=== PATIENT | male | born 1950 | race Caucasian/White ===

== ENCOUNTER → 2024-09-26 | Outpatient (CLI) | payer BC, SELFPAY ==
--- NOTE | 2024-09-26 14:30 | XR_ITS ---
Examination: Testicular sonography complete TECHNIQUE: Grayscale sonographic images right and left testes, assessment arterial inflow venous outflow Doppler spectral analysis, flow analysis Exam date and time: September 26, 2024 1423 hours INDICATIONS: Palpable lump left testis note is beginning 2 years ago FINDINGS: Right testis 4.4 x 2.7 x 3.4 cm Epididymis 11 mm Arterial flow to the testicle 2 mm right testicular calcification, no testicular mass Severe right hydrocele Left testis 4.6 x 2.6 x 3.1 cm Epididymis 11 mm Arterial flow testicle Left mid to lateral testicular mass 6 x 5 x 6 mm Left epididymal cyst, multiple largest 7 mm Moderate hydrocele IMPRESSION: No testicular torsion or testicular mass Large right hydrocele Solid mass left testis 6 x 5 x 6 mm, clinical correlation advised
== END | disposition home or self-care (01) ==
PROVIDERS: PCP Specialist; Referring Provider Family Medicine; Visit Provider Family Medicine
DX: N43.3 Hydrocele, unspecified (principal); N50.89 Other specified disorders of the male genital organs
CPT/HCPCS: 76870

== ENCOUNTER 2024-12-07 15:23 | Emergency (ER) | payer BC, SELFPAY ==
[2024-12-07 15:25] VITALS: BMI 32.8
[2024-12-07 15:56] VITALS: BP 134/78; PULSE 99; RESP 22; TEMP 39; O2SAT 94
--- NOTE | 2024-12-07 16:15 | EKG_ITS ---
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
--- NOTE | 2024-12-07 16:15 | XR_ITS ---
Examination: PA chest single view TECHNIQUE: Upright PA chest single view Exam date and time: December 07, 2024 1628 hours INDICATIONS: Coughing and fever beginning 3 days ago. FINDINGS: Significant left base pneumonia Right lung clear Normal heart size IMPRESSION: Significant left base pneumonia
--- NOTE | 2024-12-07 16:16 | PD.EDRME ---
Rapid Medical Screening Exam E Arrival date/time: 12/07/24 15:23 74-year-old male presents to the emergency department with complaints of fever, shortness of breath reports he was instructed by his PCP to come to the ED due to low pulse oximetry. I have greeted and performed a focused initial assessment of this patient. Initial appropriate labs ordered at this time. A comprehensive ED assessment and evaluation of the patient and analysis of all test and completion of medical decision making process will be conducted by additional ED provider. Chief Complaint: Shortness of Breath/Dyspnea Time Seen by Provider: 12/07/24 15:59 Vital signs: Vital Signs Temperature 102.2 F H 12/07/24 15:56 Pulse Rate 99 12/07/24 15:56 Respiratory Rate 22 H 12/07/24 15:56 Blood Pressure 134/78 H 12/07/24 15:56 Pulse Oximetry (%) 94 L 12/07/24 15:56 Oxygen Delivery Method Room Air 12/07/24 15:56
[2024-12-07 16:42] LABS: Basophils % (Auto) 0 % (0-2.5); Eosinophils % (Auto) 0 % (0-10); Hematocrit 43.2 % (41.0-53.0); Hemoglobin 14.7 g/dL (13.5-16.0); Immature Granulocytes % (Auto) 0 % (0-0); Immature Granulocytes Auto 0.03 Thou/mm3 (0.00-0.00); Lymphocytes # (Auto) 1.2 Thou/mm3 (1.0-4.8); Lymphocytes % (Auto) 15 % (10-50); Mean Corpuscular Hemoglobin 30.8 pg (25.0-35.0); Mean Corpuscular Volume 90 fL (80-100); Monocytes # (Auto) 0.7 Thou/mm3 (0.0-0.8); Monocytes % (Auto) 9 % (0-12); Neutrophils # (Auto) 5.8 Thou/mm3 (1.8-7.7); Neutrophils % (Auto) 76 % (37-80); Nucleated Red Blood Cell % 0 /100 WBC (0); Platelet Count 151 Thou/mm3 (140-440); Red Blood Count 4.78 Miln/mm3 (4.50-5.90); White Blood Count 7.6 Thou/mm3 (3.8-10.6)
[2024-12-07 16:55] VITALS: TEMP 39
[2024-12-07] MEDS: ACETAMINOPHEN 500 MG TABLET 1000 MG PO (16:55)
[2024-12-07 16:59] LABS: B-Type Natriuretic Peptide 73 pg/mL (0-100); INR 1.1 (0.9-1.3); Prothrombin Time 11.6 Seconds (9.0-12.2)
[2024-12-07 17:01] LABS: Alanine Aminotransferase 12 U/L (10-49); Albumin, Serum 4.3 gm/dL (3.4-4.8); Albumin/Globulin Ratio 1.5 (1.2-2.2); Alkaline Phosphatase 76 U/L (46-116); Anion Gap 10 (7-16); Aspartate Amino Transferase 18 U/L (0-34); BUN/Creatinine Ratio 15 Ratio (12-20); Bilirubin,Total 0.8 mg/dL (0.3-1.2); Blood Urea Nitrogen 18 mg/dL (9-23); Carbon Dioxide 22.9 mMol/L (20.0-31.0); Chloride 105 mMol/L (98-107); Creatinine (Component) 1.2 mg/dL (0.6-1.3); Estimated Creatinine Clearance 60.3 mL/min (>60); Globulin 2.8 gm/dL (2.3-3.5); Glucose 116 mg/dL (74-106); Lipase 35 U/L (12-53); Osmolality,Calculated 278 (275-295); Potassium 3.8 mMol/L (3.4-5.1); Sodium 138 mMol/L (136-145); Total Protein 7.1 gm/dL (5.7-8.2); Troponin I < 0.020 ng/mL (0.0-0.045); eGFR > 60 See Note
[2024-12-07 17:30] LABS: Respiratory Syncytial Virus Ag Negative (Negative)
--- NOTE | 2024-12-07 20:46 | EDNOTE_ITS ---
ED SOB =RME/HPI General Chief Complaint: Shortness of Breath/Dyspnea Stated Complaint: SOB, sore throat, cough, flu like symptoms Time Seen by Provider: 12/07/24 15:59 Arrival date/time: 12/07/24 15:23 RME / HPI RME / HPI Narrative: 12/07/24 15:23 74-year-old male presents to the emergency department with complaints of fever, shortness of breath reports he was instructed by his PCP to come to the ED due to low pulse oximetry. I have greeted and performed a focused initial assessment of this patient. Initial appropriate labs ordered at this time. A comprehensive ED assessment and evaluation of the patient and analysis of all test and completion of medical decision making process will be conducted by additional ED provider. Dr. Sterling?s Main ED Evaluation: 74yo male with a history of HTN, BPH presents to the ED for complaints of fever, cough, and hypoxia. Patient states he's had a fever, sore throat, and cough for the last 2-3 days, reporting it's been progressively getting worse. Today, he states he felt generally weak and lightheaded, and when he checked his oxygen, it was 88% on room air. He was seen by his PCP, who sent him over for evaluation. Patient denies any N/V/D or any other associated symptoms. No known allergies. Related Data Home Medications ?Medication ?Instructions ?Recorded ?Confirmed aspirin 81 mg tablet,delayed 81 mg PO QDAY 01/04/23 release Held on 01/04/23. Instructions: Resume on 01/05/23. atorvastatin 10 mg tablet 10 mg PO QHSPRN 01/04/23 levetiracetam 1,000 mg tablet 1,000 mg PO QDAY 3 01/04/23 sertraline 100 mg tablet 100 mg PO QDAY 01/04/2312/17 tamsulosin 0.4 mg capsule 0.4 mg PO QDAY 01/04/2312/17 valsartan 160 mg tablet 160 mg PO DAILY 01/04/23 Held on 01/04/23. Instructions: Resume on 01/05/23. Previous Rx's ?Medication ?Instructions ?Recorded acetaminophen 500 mg capsule 1,000 mg (2 x 500 mg) PO Q6H PRN 12/07/24 fever or pain 5 days #40 caps azithromycin 250 mg tablet 250 mg PO QDAY Community ac quired 12/07/24 (Zithromax) pneumonia 4 days #4 tabs ibuprofen 600 mg tablet 600 mg PO Q6H PRN fever or p ain 5 12/07/24 days #20 tabs Allergies Allergy/AdvReac Type Severity Reaction Status Date / Time No Known Allergies Allergy Verified 01/04/23 11:56 Review of Systems Review of Systems Systems Reviewed: All systems reviewed, normal except as documented Past Medical History Past Medical History NEUROLOGIC: Negative Neurological Disorders or Seizures CARDIAC: Positive Hypertension; Negative Congestive Heart Failure RESPIRATORY: Negative Chronic Obstructive Pulmonary Disease (COPD) GENITOURINARY: Positive Benign Prostatic Hyperplasia; Negative Renal Disease MUSCULOSKELETAL: Negative Musculoskeletal Disorders ENDOCRINE: Negative Endocrine Disorders, Diabetes Mellitus Type 1 or Diabetes Mellitus Type 2 HEMATOLOGIC: Negative Blood Disorders OTHER HISTORY: Positive Hospitalization (RIGHT ANKLE TENDEN SX); Negative Autoimmune Disease, Blood Transfusions, Blood Transfusion Reaction, Anesthesia Reactions or Organ Transplant Family History FAMILY HISTORY: Positive Family Cardiac Disorders (FATHER [place]), Family Gastrointestinal Problems (SISTER WITH COLON CA) and Family Cancer (SISTER WITH COLON CA) Surgical History SURGICAL: Negative Joint Replacement or Organ Transplant Social History SMOKING STATUS: Never smoker ED Exam Narrative Physical exam: GENERAL APPEARANCE: alert and oriented x 4, well-developed, well-nourished, no acute distress VITALS: All vitals were reviewed and the pulse ox is 96% on room air, which is normal according to my interpretation. HEENT: Normocephalic, atraumatic; pupils equal, round, reactive to light; EOMI; mucous membranes pink, moist; mild posterior orophayngeal injection; normal voice, normal arch, uvula is midline NECK: Supple LUNGS: CTABL; no wheezes, no rales, no rhonchi HEART: Regular rate, regular rhythm; normal S1, S2; no murmurs ABDOMEN: non distended; normal BS; soft, no tenderness, no guarding, no rebound; no masses, no organomegaly, no hernia BACK: no CVA tenderness EXTREMITIES: atraumatic; no edema NEUROLOGIC: awake; alert and oriented x4; cranial nerves II-XII grossly intact; no focal sensory or motor deficits PSYCHIATRIC: appropriate mood and affect SKIN: warm, dry, normal color; no rashes Course Course Course Narrative: CXR is ordered for determining the etiology of cough. Quality Measures none Orders Category Date Time Status Bedside COVID-19 Antigen Test NOW Care 12/07/24 16:15 Completed Bedside Influenza A&B Antigen Test NOW Care 12/07/24 16:16 Completed EKG (ED ONLY) *Do not use* NOW Care 12/07/24 16:15 Completed EKG (ED Only) Stat Exams 12/07/24 16:15 Draft XR chest 1V portable Stat Exams 12/07/24 16:15 Completed B-Type Natriuretic Peptide Stat Lab 12/07/24 16:24 Completed Blood Culture (Lab) Stat Lab 12/07/24 17:25 Received CBC Stat Lab 12/07/24 16:24 Completed Comprehensive Metabolic Panel Stat Lab 12/07/24 16:24 Completed Lipase Stat Lab 12/07/24 16:24 Completed Magnesium Stat Lab 12/07/24 16:24 Completed Prothrombin Time with INR Stat Lab 12/07/24 16:24 Completed RSV [Respiratory Syncytial Virus Ag] Stat Lab 12/07/24 16:37 Completed Troponin I Stat Lab 12/07/24 16:24 Completed Acetaminophen Tab [Tylenol ES Tab] Med 12/07/24 16:17 Discontinued 1,000 mg PO X1 ONE Azithromycin Po [Zithromax PO] Med 12/07/24 21:00 Discontinued 500 mg PO X1 ONE Dexamethasone Inj [Decadron Inj] Med 12/07/24 21:01 Discontinued 10 mg PO X1 ONE Vital Signs Vital signs: Vital Signs Temperature 102.2 F H 12/07/24 15:56 Pulse Rate 99 12/07/24 15:56 Respiratory Rate 22 H 12/07/24 15:56 Blood Pressure 134/78 H 12/07/24 15:56 Pulse Oximetry (%) 94 L 12/07/24 15:56 Oxygen Delivery Method Room Air 12/07/24 15:56 Shortness of Breath / Dyspnea MDM Narrative MDM Narrative:: Scribe Attestation: 12/07/24 - Ciera Smith am scribing for and in the presence of Dr. Sterling. Patient data External records reviewed:: [facility] previous records (Per chart review, patient was seen here on 10/23/19 for pneumonia.) Clinical information provided by:: patient Social determinants that could affect healthcare access:: none Patient has the following chronic illnesses:: HTN, BPH How is presenting disease/condition affected by chronic disease/condition?: uneffected by Evaluation data The following diagnostics were reviewed and interpreted by me:: lab results, radiology exam(s) and EKG tracing(s) Lab and/or radiology exams considered but not ordered:: none Interpretation Summary: CBC is normal, CMP is normal, Troponin is normal, BNP is normal, Bedside COVID and Influenza are negative, RSV is negative, according to my interpretation. EKG done at 1620, NSR, rate of 93, normal axis, no ectopy, no acute ischemia, according to my interpretation. ------ [place] [facility] Report Signed Patient: MARIA D WARD [facility]. Record#: [id number] Birthdate: 1950 Age/Sex: 74 / M Location: [facility] Attending Dr: Ordering Physician[facility] Date of Service: 12/07/24 Procedure(s): XR chest 1V portable Accession Number(s): [id number] cc: Estrada Ellis MD; Jean Freeman MD; Roberth [facility]KA[facility] Watkins~ Examination: PA chest single view TECHNIQUE: Upright PA chest single view Exam date and time: December 07, 2024 1628 hours INDICATIONS: Coughing and fever beginning 3 days ago. FINDINGS: Significant left base pneumonia Right lung clear Normal heart size IMPRESSION: Significant left base pneumonia Dictated By: Jean Freeman MD Signed By: <Electronically signed by Jean Freeman MD in OV> 12/07/24 1640 Medications / Prescriptions Medications or Prescriptions considered but not ordered:: none Medication administrations:: Medication Administration History Discontinued Medications Acetaminophen (Acetaminophen 500 Mg Tablet) 1,000 mg PO X1 ONE Stop: 12/07/24 16:18 Last Admin: 12/07/24 16:55 Dose: 1,000 mg Documented By: OA Azithromycin (Azithromycin 250 Mg Tablet) 500 mg PO X1 ONE Stop: 12/07/24 21:01 Last Admin: 12/07/24 21:13 Dose: 500 mg Documented By: OA Dexamethasone Sodium Phosphate (Dexamethasone Sod Phos Inj 10 Mg/Ml Vial) 10 mg PO X1 ONE Stop: 12/07/24 21:02 Last Admin: 12/07/24 21:12 Dose: 10 mg Documented By: OA see above Consultations Consultation(s) initiated? (list below): No Diagnosis Shortness of Breath Differential Diagnosis: community acquired pneumonia and other (COVID, Influenza, viral URI, Strep throat) Most likely diagnosis given after review of the tests above:: see below Admission Indicated Admission indicated?: not indicated Explain why admission is indicated or not indicated:: No criteria for admission. Admission Request Was there a request for admission?: No Disposition Plan Disposition Plan: Discharge Discharge Attestation Discharge Attestation: The patient and all family members were given an opportunity to ask questions and understood the discharge instructions. Discharge instructions specifically effects, indications for sooner follow up or return to the emergency department, and the expected course of current diagnosis. Patient condition: Stable Discharge Plan Plan Patient Disposition: HOME (Self Care) Disposition Comment: Stable for discharge Patient condition on transfer: Stable Prescriptions/Referrals Prescriptions/Med Rec: New ibuprofen 600 mg tablet 600 mg PO Q6H PRN (Reason: fever or pain) 5 Days Qty: 20 0RF acetaminophen 500 mg capsule 1,000 mg PO Q6H PRN (Reason: fever or pain) 5 Days Qty: 40 0RF azithromycin [Zithromax] 250 mg tablet 250 mg PO QDAY 4 Days Qty: 4 0RF Rx Instructions: start on day 2 of therapy No Action atorvastatin 10 mg tablet 10 mg PO QHSPRN Patient Comments: take 1 tablet by mouth at bedtime sertraline 100 mg tablet 100 mg PO QDAY Patient Comments: take 1 tablet by mouth once daily aspirin 81 mg Tablet,Delayed Release (Dr/Ec) 81 mg PO QDAY tamsulosin 0.4 mg capsule 0.4 mg PO QDAY Patient Comments: take 1 capsule by mouth once daily CALL IF DIZZY valsartan 160 mg tablet 160 mg PO DAILY Patient Comments: take 1 tablet by mouth once daily levetiracetam 1,000 mg tablet 1,000 mg PO QDAY Patient Comments: take 1 and 1/2 tablets by mouth twice a day Referrals: Estrada Ellis MD [Primary Care Provider] - In 1 week Problem List Clinical Impression: Community acquired pneumonia, Fever Patient/Caregiver Discharge Instructions Discharge Activity: activity as tolerated Education Materials: What Is Pneumonia?, Treating Pneumonia, When You Have Pneumonia, ED Pneumonia (Adult) Additional Instructions: Please return to the emergency department if you have any worsening or if you do not feel like you are improving within the next 24 to 48 hours and we will help you. Otherwise you should follow-up with your primary care doctor within the next several days. You should go to the pharmacy in the morning. You are going to have 3 medicines. One of them is called azithromycin or Zithromax. Please take 1 tab every day for 4 days for your pneumonia. The other 2 medicines are acetaminophen and ibuprofen. These medicines are for your aches, pains, fevers, chills and shakes. Take those medicines together every 6 hours to prevent fevers. Print Language: [employer] Stand Alone Forms: Mabel Award Info., Patient Portal Info Letter
[2024-12-07 20:47] VITALS: BP 126/73; PULSE 75; RESP 18; TEMP 37.3; O2SAT 99
[2024-12-07] MEDS: DEXAMETHASONE SOD PHOS INJ 10 MG/ML VIAL PO (21:12)
[2024-12-07] MEDS: AZITHROMYCIN 250 MG TABLET 500 MG PO (21:13)
== END 2024-12-07 21:19 | disposition home or self-care (01) ==
PROVIDERS: Nurse Practitioner Primary Care; Emergency Provider Emergency Medicine; PCP Specialist
DX: J18.9 Pneumonia, unspecified organism (principal); I10 Essential (primary) hypertension
CPT/HCPCS: 36415; 71045; 80053; 83690; 83735; 83880; 84484; 85025; 85610; 87040; 87400; 87634; 87811; 93005; 99283; J1100; A9270

== ENCOUNTER → 2024-12-07 | Outpatient (CLI) | payer BC, SELFPAY ==
[2024-12-07 11:57] LABS: Influenza A Ag Negative; Influenza B Ag Negative
== END | disposition home or self-care (01) ==
PROVIDERS: PCP Specialist; Referring Provider Specialist; Visit Provider Specialist
DX: R50.9 Fever, unspecified (principal)
CPT/HCPCS: 87502

== ENCOUNTER → 2024-12-28 | Outpatient (CLI) | payer BC, SELFPAY ==
[2024-12-28 14:41] LABS: Albumin, Serum 4.3 gm/dL (3.4-4.8); Anion Gap 10 (7-16); BUN/Creatinine Ratio 15 Ratio (12-20); Blood Urea Nitrogen 18 mg/dL (9-23); Calcium 9.8 mg/dL (8.3-10.6); Calcium (Corrected) 9.8 mg/dL (8.5-10.1); Carbon Dioxide 23.2 mMol/L (20.0-31.0); Chloride 109 mMol/L (98-107); Creatinine (Component) 1.2 mg/dL (0.6-1.3); Glucose 97 mg/dL (74-106); Osmolality,Calculated 285 (275-295); Phosphorous 3.3 mg/dL (2.4-5.1); Potassium 4.4 mMol/L (3.4-5.1); Sodium 142 mMol/L (136-145); Thyroid Stimulating Hormone 3.15 uIU/mL (0.55-4.78); eGFR > 60 See Note
[2024-12-28 14:53] LABS: Cardiac Risk Estimate 3.8 RATIO (4.0-6.7); Cholesterol 159 mg/dL (132-200); HDL Cholesterol 42 mg/dL (40-60); LDL Cholesterol,Calculated 92 mg/dL (0-130); Triglycerides 123 mg/dL (30-150)
[2024-12-28 15:15] LABS: Parathyroid Hormone Intact 45.2 pg/ml (18.5-88.0)
[2025-01-05 06:31] LABS: Vitamin D, 25-OH, D2 <4 ng/mL; Vitamin D, 25-OH, D3 46 ng/mL; Vitamin D, 25-OH, Total 46 ng/mL (30-100)
== END | disposition home or self-care (01) ==
LOC: COPL 12:00
PROVIDERS: PCP Specialist; Referring Provider Specialist; Visit Provider Specialist
DX: I12.9 Hypertensive chronic kidney disease with stage 1 through stage 4 chronic kidney disease, or unspecified chronic kidney disease (principal); N18.9 Chronic kidney disease, unspecified; E78.2 Mixed hyperlipidemia; E83.51 Hypocalcemia
CPT/HCPCS: 36415; 80061; 80069; 82306; 83970; 84443

== ENCOUNTER → 2025-07-06 | Outpatient (CLI) | payer BC, SELFPAY ==
[2025-07-06 17:03] LABS: Prostate Specific Antigen 1.26 ng/mL (0-4.00)
== END | disposition home or self-care (01) ==
PROVIDERS: PCP Specialist; Referring Provider Family Medicine; Visit Provider Family Medicine
DX: N40.1 Benign prostatic hyperplasia with lower urinary tract symptoms (principal)
CPT/HCPCS: 36415; 84153

== ENCOUNTER → 2025-07-18 | Outpatient (CLI) | payer BC, SELFPAY ==
--- NOTE | 2025-07-18 10:38 | XR_ITS ---
Examination: Lumbar spine, 5 views Technique: Lumbar spine AP, lateral, coned lateral lower lumbar spine, bilateral obliques 5 views Exam date and time: July 18, 2025 1050 hours INDICATIONS: Lower back pain 3 months. FINDINGS: Thoracolumbar dextroscoliosis 10 degrees Severe osteopenia Advanced diffuse facet arthropathy No lumbar fracture Prominent lumbar spondylosis Moderate diffuse lumbar degenerative disc disease IMPRESSION: Moderate diffuse lumbar degenerative disc disease with significant spinal stenosis
== END | disposition home or self-care (01) ==
PROVIDERS: PCP Specialist; Referring Provider Chiropractor; Visit Provider Chiropractor
DX: M51.360 Other intervertebral disc degeneration, lumbar region with discogenic back pain only (principal); M48.061 Spinal stenosis, lumbar region without neurogenic claudication
CPT/HCPCS: 72110